=== PATIENT | male | born 1980 | race African-American/Black ===

== ENCOUNTER 2020-08-12 08:24 | Emergency (ER) | payer MEDICAID ==
[~2020-08-12] VITALS: Ht 188 cm; Wt 124.0 kg
[2020-08-12 08:26] VITALS: BP 157/98
[2020-08-12] MEDS ORDERED: ACETAMINOPHEN WITH CODEINE 300/30MG TABLET PO ONE (09:30)
== END 2020-08-12 10:31 | disposition home or self-care (01) ==
LOC: ER 08:29
DX: M25.571 Pain in right ankle and joints of right foot (principal); M79.89 Other specified soft tissue disorders; W18.43XA Slipping, tripping and stumbling without falling due to stepping from one level to another, initial encounter; Y93.01 Activity, walking, marching and hiking; Y92.480 Sidewalk as the place of occurrence of the external cause
CPT/HCPCS: 73610; 73630; 99284

== ENCOUNTER 2022-06-26 10:17 | Emergency (ER) | payer MEDICAID ==
[~2022-06-26] VITALS: Ht 188 cm; Wt 126.0 kg
[2022-06-26 10:35] VITALS: BP 148/87
[2022-06-26] MEDS ORDERED: NAPR-1176 MT (12:25)
[2022-06-26] MEDS ORDERED: CYCL10TA21 MT (12:25)
[2022-06-26] MEDS ORDERED: CYCLOBENZAPRINE 10MG TABLET PO ONE (12:30)
[2022-06-26] MEDS ORDERED: KETOROLAC 30MG/ML VIAL IM ONE (12:30)
== END 2022-06-26 12:55 | disposition home or self-care (01) ==
LOC: ER 10:17
DX: M54.50 Low back pain, unspecified (principal); F12.10 Cannabis abuse, uncomplicated
CPT/HCPCS: 99282; J1885